=== PATIENT | female | born 1940 | race Caucasian/White ===

== ENCOUNTER 2016-12-11 12:38 | Day surgery (SDC) | payer MEDICARE ==
[2016-12-11] MEDS ORDERED: LIDOCAINE 2% MDV (20MG/ML) 20ML VIAL IV ONE (14:00)
[2016-12-11] MEDS ORDERED: PROPOFOL 10 MG/ML VIAL IV ONE (14:00)
--- NOTE | 2016-12-13 12:20 | Operative Note ---
DATE OF SURGERY: 12/11/2016 OPERATION: COLONOSCOPY to the cecum with cold biopsy forceps x3 and cold snare polypectomy x1. INDICATION: History of colon polyps. The patient had previous colonoscopy by my associate approximately 5 years ago. ANESTHESIA: Intravenous sedation was administered by the department of anesthesiology and included Diprivan titrated to effect. PROCEDURE: Following informed consent from this alert individual including a discussion of the risks and benefits of the procedure and an opportunity for the patient to ask questions, the patient was in the left lateral decubitus position. A digital rectal examination was performed. No abnormalities were noted. Following this, the Olympus [id number] video colonoscope was inserted into the rectum without resistance. The rectal mucosa had a normal appearance with normal folds and distensibility. The colonoscope was advanced up through the bowel to the level of the cecum without much difficulty. Throughout the bowel the mucosa appeared normal, the folds were normal, and the bowel was fairly well distensible. The cecum was well defined by noting the appendiceal orifice and ileocecal valve. The colon preparation was good. From the base of the cecum, the colonoscope was then withdrawn. In the ascending colon, there were 2 polyps noted. The largest measured 6 mm in size and was removed with cold snare polypectomy. The second polyp was diminutive in size measuring approximately 3 mm and was removed with biopsy forceps. There was also a third polyp noted in the descending colon measuring 3 mm in size and again removed with cold biopsy forceps. No other changes were noted until the rectum was reached. Retroflexion in the rectum revealed [id number] size internal hemorrhoids. The endoscope was straightened and withdrawn. The patient tolerated the procedure well and was returned to the recovery area in stable condition. IMPRESSION: 1. Three colon polyps removed as described above with 2 in the ascending colon and 1 in the descending colon. 2. [id number] size internal hemorrhoids. RECOMMENDATIONS: Further recommendations will be forthcoming pending results of pathology obtained today. Followup will also be with Dr. Walt Smith. As always, thank you for allowing me to participate in the care of your patient. Cristian Coleman DO CC: Dr. Sarah GOINS
== END 2016-12-11 15:10 | disposition home or self-care (01) ==
LOC: HOP 12:38
PROVIDERS: ATTEND Internal Medicine Gastroenterology
DX: Z12.11 Encounter for screening for malignant neoplasm of colon (principal); Z86.010 Personal history of colon polyps; D12.2 Benign neoplasm of ascending colon; D12.4 Benign neoplasm of descending colon; E03.9 Hypothyroidism, unspecified; K64.8 Other hemorrhoids